=== PATIENT | female | born 1970 | race Caucasian/White ===

== ENCOUNTER 2024-02-22 23:19 | Inpatient (IN) | payer OTHER ==
[~2024-02-22] VITALS: Ht 170.2 cm; Wt 75.0 kg
[2024-02-22 23:23] VITALS: O2SAT 95
[2024-02-23] VITALS (9 sets, daily range): BP systolic 140–173; BP diastolic 80–106; PULSE 75–111; RESP 18–20; TEMP 97–97.9
[2024-02-23 00:32] LABS: BASOPHILS % 0.6 % (0.0-2.0); EOSINOPHILS % 3.5 % (0.0-5.0); HEMATOCRIT. 33.5 % (36.0-48.0); LYMPHOCYTES % 22.6 % (20.0-50.0); MEAN CORPUSCULAR HEMOGLOBIN 29.3 pg (28.0-32.0); MEAN CORPUSCULAR HGB CONC 32.9 g/dL (31.0-37.0); MONOCYTES % 8.8 % (2.0-8.0); NEUTROPHILS % 64.5 % (40.0-76.0); PLATELET 266 x1000/uL (130-400); RED BLOOD CELL COUNT 3.77 mill/uL (4.2-5.4); RED CELL DISTRIBUTION WIDTH 14.7 % (11.6-14.6); WHITE BLOOD COUNT 7.7 x1000/uL (4.5-11.0)
[2024-02-23 00:40] LABS: CHLORIDE 108 mEq/L (98-107); SODIUM 139 mEq/L (136-145)
[2024-02-23 00:41] LABS: CARBON DIOXIDE 24 mEq/L (21-32)
[2024-02-23 00:46] LABS: GLUCOSE 128 mg/dL (70-105); UREA NITROGEN BLOOD 54 mg/dL (9-23)
[2024-02-23 00:47] LABS: TROPONIN I HIGH SENSITIVITY 17 ng/L (3.0-34)
[2024-02-23 00:48] LABS: ALANINE AMINOTRANSFERASE 11 IU/L (10-49); ALBUMIN 3.7 g/dL (3.2-4.8); ASPARTATE AMINOTRANSFERASE 12 IU/L (<34); BILIRUBIN TOTAL 0.2 mg/dL (0.1-1.0); PROTEIN TOTAL 6.7 g/dL (6.0-8.3)
[2024-02-23 00:49] LABS: BILIRUBIN DIRECT < 0.1 mg/dL (<=3.0)
[2024-02-23 00:51] LABS: POTASSIUM 5.8 mEq/L (3.5-5.1)
[2024-02-23 00:58] LABS: CREATININE 5.4 mg/dL (0.6-1.0)
[2024-02-23] MEDS: INSULIN REGULAR (HUMULIN R) 300UNITS/3ML VIAL IV NR (01:00)
[2024-02-23] MEDS ORDERED: CALCIUM GLUCONATE 1,000 MG in DEXT 5% WATER 100 ML IV ONE (01:00)
[2024-02-23] MEDS: SODIUM POLYSTYRENE SULFONATE 15 G/60 ML BOT PO NR (01:00)
[2024-02-23] MEDS ORDERED: ALBUTEROL (0.083%) 2.5MG/3ML NEB HHN SCH (01:00)
[2024-02-23 01:02] LABS: BG BASE EXCESS -3.1 mmol/L (-2.0-2.0); BG CARBOXYHEMOGLOBIN 0.5 % (0.5-1.5); BG OXYHEMOGLOBIN 92.5 % (94.0-97.0); BG PCO2 39.9 mmHg (35.0-45.0); BG PO2 64.8 mmHg (75.0-100.0); BG SAMPLE SITE RIGHT RADIAL; BG TOTAL HEMOGLOBIN 11.4 g/dL (12.0-18.0); BG VENT MODE ROOM AIR
[2024-02-23 01:59] LABS: HEPATITIS B SURFACE ANTIGEN NEGATIVE (Negative)
[2024-02-23] MEDS: DEXTROSE 50% WATER 50ML SYRINGE IV NR (02:04)
[2024-02-23] MEDS: FUROSEMIDE 40MG/4ML VIAL IV NR (02:05)
[2024-02-23] MEDS: SODIUM BICARBONATE 8.4% 1 MEQ/ML 50ML SYR IV NR (02:11)
[2024-02-23 02:20] LABS: HEPATITIS A AB IGM NEGATIVE (Negative); HEPATITIS B CORE AB IGM NEGATIVE (Negative)
[2024-02-23 02:21] LABS: HEPATITIS C AB NON REACTIVE (Neg) (Negative)
[2024-02-23] MEDS: CALCIUM GLUCONATE 1GM PREMIX 50 ML IV NR (03:25)
[2024-02-23] MEDS: CALCIUM ACETATE 667MG CAPSULE PO SCH (12:32)
[2024-02-23] MEDS: FOLIC ACID/VITAMIN B COMP W-C TABLET PO SCH (12:33)
[2024-02-23] MEDS ORDERED: DOCUSATE SODIUM 100MG CAPSULE PO PRN (12:45)
[2024-02-23] MEDS ORDERED: IPRATROPIUM/ALBUTEROL 0.5-3(2.5)MG/3ML NEB HHN PRN (12:45)
[2024-02-23] MEDS ORDERED: ACETAMINOPHEN 325MG TABLET PO PRN (12:45)
[2024-02-23] MEDS ORDERED: ONDANSETRON HCL 4MG/2ML INJ IV PRN (12:45)
[2024-02-23] MEDS ORDERED: AMLO10TA80 PO (16:29)
[2024-02-23] MEDS ORDERED: NIFE90TA60 PO (16:29)
[2024-02-23] MEDS ORDERED: ATOR40TA70 PO (16:29)
[2024-02-23] MEDS ORDERED: SEVE800T8 PO (16:29)
[2024-02-23] MEDS ORDERED: APIX5TAB PO (16:29)
[2024-02-23] MEDS ORDERED: LABE200T9 PO (16:29)
[2024-02-23] MEDS ORDERED: BUME1TAB8 PO (16:29)
[2024-02-23] MEDS ORDERED: CARV25TA47 PO (16:29)
[2024-02-23] MEDS ORDERED: HALO2TAB2 PO (16:29)
[2024-02-23] MEDS ORDERED: DIVA-75 PO (16:29)
[2024-02-23] MEDS: HEPARIN 5000 UNITS/ML VIAL SUBCUT SCH (17:38)
[2024-02-23] MEDS: ACETAMINOPHEN 325MG TABLET PO PRN (17:46)
[2024-02-23] MEDS: CLONIDINE 0.1MG TABLET PO PRN (17:46)
[2024-02-24] VITALS (7 sets, daily range): BP systolic 125–186; BP diastolic 68–102; PULSE 73–103; RESP 18–20; TEMP 97.2–98.6
[2024-02-24 06:07] LABS: BASOPHILS % 0.8 % (0.0-2.0); EOSINOPHILS % 4.2 % (0.0-5.0); HEMOGLOBIN. 11.4 g/dL (12.0-16.0); LYMPHOCYTES % 26.3 % (20.0-50.0); MEAN CORPUSCULAR HEMOGLOBIN 28.9 pg (28.0-32.0); MEAN CORPUSCULAR HGB CONC 33.5 g/dL (31.0-37.0); MEAN CORPUSCULAR VOLUME 86.1 fL (81.0-99.0); MEAN PLATELET VOLUME 8.3 fl (7.4-10.4); MONOCYTES % 8.6 % (2.0-8.0); NEUTROPHILS % 60.1 % (40.0-76.0); PLATELET 258 x1000/uL (130-400); RED BLOOD CELL COUNT 3.95 mill/uL (4.2-5.4); RED CELL DISTRIBUTION WIDTH 14.7 % (11.6-14.6); WHITE BLOOD COUNT 6.2 x1000/uL (4.5-11.0)
[2024-02-24 06:13] LABS: CALCIUM 8.4 mg/dL (8.7-10.4); POTASSIUM 4.7 mEq/L (3.5-5.1)
[2024-02-24] MEDS ORDERED: IOHEXOL-350 100 ML BOTTLE IV NR (21:30)
[2024-02-25] VITALS: PULSE 102
[2024-02-25 04:00] VITALS: PULSE 101
[2024-02-25 08:00] VITALS: BP 161/95; PULSE 100; RESP 18; TEMP 98.8
[2024-02-25 12:00] VITALS: BP 170/100; PULSE 101; RESP 20; TEMP 98
[2024-02-25 16:00] VITALS: PULSE 100; RESP 18; TEMP 97
[2024-02-25 20:00] VITALS: BP 154/90; PULSE 100; RESP 17; TEMP 98.1
[2024-02-26] VITALS (7 sets, daily range): BP systolic 130–197; BP diastolic 84–119; PULSE 72–105; RESP 18–20; TEMP 97.5–98.1
[2024-02-26 06:24] LABS: BASOPHILS % 0.8 % (0.0-2.0); EOSINOPHILS % 4.9 % (0.0-5.0); HEMATOCRIT. 33.6 % (36.0-48.0); HEMOGLOBIN. 11.3 g/dL (12.0-16.0); MEAN CORPUSCULAR HEMOGLOBIN 28.7 pg (28.0-32.0); MEAN CORPUSCULAR HGB CONC 33.5 g/dL (31.0-37.0); MEAN CORPUSCULAR VOLUME 85.7 fL (81.0-99.0); MEAN PLATELET VOLUME 8.6 fl (7.4-10.4); MONOCYTES % 8.8 % (2.0-8.0); NEUTROPHILS % 58.5 % (40.0-76.0); PLATELET 261 x1000/uL (130-400); RED BLOOD CELL COUNT 3.92 mill/uL (4.2-5.4); RED CELL DISTRIBUTION WIDTH 14.5 % (11.6-14.6); WHITE BLOOD COUNT 6.2 x1000/uL (4.5-11.0)
[2024-02-26 06:32] LABS: CHLORIDE 103 mEq/L (98-107); POTASSIUM 5.4 mEq/L (3.5-5.1); SODIUM 134 mEq/L (136-145)
[2024-02-26 06:34] LABS: CALCIUM 8.4 mg/dL (8.7-10.4); CARBON DIOXIDE 25 mEq/L (21-32); INR 0.9; PROTHROMBIN TIME 10.2 sec (9.6-11.0)
[2024-02-26 06:40] LABS: ALANINE AMINOTRANSFERASE 13 IU/L (10-49); GLUCOSE 193 mg/dL (70-105); UREA NITROGEN BLOOD 47 mg/dL (9-23)
[2024-02-26 06:41] LABS: ALBUMIN 3.7 g/dL (3.2-4.8); ASPARTATE AMINOTRANSFERASE 12 IU/L (<34)
[2024-02-26 06:42] LABS: BILIRUBIN TOTAL 0.2 mg/dL (0.1-1.0); PROTEIN TOTAL 6.8 g/dL (6.0-8.3)
[2024-02-26 06:48] LABS: BILIRUBIN DIRECT < 0.1 mg/dL (<=3.0)
[2024-02-26] MEDS: SODIUM POLYSTYRENE SULFONATE 15 G/60 ML BOT PO NR (09:45)
[2024-02-26] MEDS ORDERED: ALBUTEROL (0.083%) 2.5MG/3ML NEB HHN NR (09:45)
[2024-02-26] MEDS ORDERED: PHENYLEPHRINE/SHK LV/MO/PET RECTAL OINTMENT 28GM PR PRN (12:00)
[2024-02-26] MEDS ORDERED: LORAZEPAM 1MG TABLET PO PRN (20:15)
[2024-02-26] MEDS: RISPERIDONE 1MG TABLET PO SCH (21:11)
[2024-02-27 04:00] VITALS: BP 159/95; PULSE 96; RESP 18; TEMP 98
[2024-02-27 07:42] LABS: CALCIUM 8.1 mg/dL (8.7-10.4); POTASSIUM 5.2 mEq/L (3.5-5.1)
[2024-02-27 07:54] LABS: CREATININE 5.3 mg/dL (0.6-1.0)
[2024-02-27 08:00] VITALS: BP 157/94; PULSE 104; RESP 18; TEMP 96.3
[2024-02-27 08:09] LABS: BASOPHILS % 0.6 % (0.0-2.0); EOSINOPHILS % 4.1 % (0.0-5.0); LYMPHOCYTES % 23.6 % (20.0-50.0); MEAN CORPUSCULAR HEMOGLOBIN 28.6 pg (28.0-32.0); MEAN CORPUSCULAR HGB CONC 33.5 g/dL (31.0-37.0); MEAN CORPUSCULAR VOLUME 85.4 fL (81.0-99.0); MEAN PLATELET VOLUME 8.5 fl (7.4-10.4); MONOCYTES % 9.6 % (2.0-8.0); NEUTROPHILS % 62.1 % (40.0-76.0); PLATELET 231 x1000/uL (130-400); RED CELL DISTRIBUTION WIDTH 14.8 % (11.6-14.6); WHITE BLOOD COUNT 6.2 x1000/uL (4.5-11.0)
[2024-02-27 08:46] LABS: HEMATOCRIT. 28.2 % (36.0-48.0); HEMOGLOBIN. 9.5 g/dL (12.0-16.0)
[2024-02-27] MEDS ORDERED: DICLOFENAC SODIUM 1% GEL 50GM TOP SCH (11:00)
== END 2024-02-27 12:53 | disposition left against medical advice (07) | DRG 425 ==
LOC: ER 23:19 → EDBEDREQ 02-23 00:10 → 8WST 02-23 02:42 → EDBEDREQ 02-23 02:48 → 8WST 02-26 01:28
PROVIDERS: ADMIT Internal Medicine; ATTEND Internal Medicine
PROC: 5A1D70Z Performance of Urinary Filtration, Intermittent, Less than 6 Hours Per Day (ICD-10-PCS; principal; 2024-02-23)
PROC: 5A1D70Z Performance of Urinary Filtration, Intermittent, Less than 6 Hours Per Day (ICD-10-PCS; 2024-02-26)
DX: E87.5 Hyperkalemia (principal); J96.00 Acute respiratory failure, unspecified whether with hypoxia or hypercapnia; I13.2 Hypertensive heart and chronic kidney disease with heart failure and with stage 5 chronic kidney disease, or end stage renal disease; E87.20 Acidosis, unspecified; F20.0 Paranoid schizophrenia; E11.22 Type 2 diabetes mellitus with diabetic chronic kidney disease; D64.9 Anemia, unspecified; N18.6 End stage renal disease; Z99.2 Dependence on renal dialysis; I50.32 Chronic diastolic (congestive) heart failure; J84.9 Interstitial pulmonary disease, unspecified; K64.4 Residual hemorrhoidal skin tags; J98.11 Atelectasis; D72.821 Monocytosis (symptomatic); R00.0 Tachycardia, unspecified; K92.1 Melena; Z53.29 Procedure and treatment not carried out because of patient's decision for other reasons; Z79.84 Long term (current) use of oral hypoglycemic drugs; Z59.00 Homelessness unspecified
CPT/HCPCS: 36415; 36600; 71045; 71275; 80048; 80076; 82375; 82805; 82962; 83880; 84484; 85025; 85044; 85379; 86705; 86706; 86709; 87340; 90935; 93005; 93306; 93970; 99291; J0610; J1644; J1815; J1940; J3490; Q9967

== ENCOUNTER 2024-04-01 23:13 | Inpatient (IN) | payer OTHER ==
[~2024-04-01] VITALS: Ht 170.2 cm; Wt 62.8 kg
[~2024-04-01 23:13] MED LIST: AMLO10TA80 PO; APIX5TAB PO; ATOR40TA70 PO; BUME1TAB8 PO; CARV25TA47 PO; DIVA-75 PO; HALO2TAB2 PO; LABE200T9 PO; NIFE90TA60 PO; SEVE800T8 PO
[2024-04-01 23:23] VITALS: O2SAT 97
[2024-04-01 23:57] LABS: BASOPHILS % 1.1 % (0.0-2.0); EOSINOPHILS % 2.4 % (0.0-5.0); HEMATOCRIT. 27.3 % (36.0-48.0); LYMPHOCYTES % 17.2 % (20.0-50.0); MEAN CORPUSCULAR HEMOGLOBIN 29.7 pg (28.0-32.0); MEAN CORPUSCULAR HGB CONC 33.1 g/dL (31.0-37.0); MEAN CORPUSCULAR VOLUME 89.6 fL (81.0-99.0); MEAN PLATELET VOLUME 7.5 fl (7.4-10.4); NEUTROPHILS % 70.3 % (40.0-76.0); PLATELET 262 x1000/uL (130-400); RED BLOOD CELL COUNT 3.04 mill/uL (4.2-5.4); RED CELL DISTRIBUTION WIDTH 16.7 % (11.6-14.6); WHITE BLOOD COUNT 5.5 x1000/uL (4.5-11.0)
[2024-04-02 00:04] LABS: POTASSIUM 4.7 mEq/L (3.5-5.1)
[2024-04-02 00:05] LABS: CALCIUM 8.5 mg/dL (8.7-10.4)
[2024-04-02 00:10] LABS: CREATININE 4.6 mg/dL (0.6-1.0)
[2024-04-02] MEDS: CLONIDINE 0.1MG TABLET PO NR (03:06)
[2024-04-02] MEDS: CLONIDINE 0.2MG TABLET PO ONE (03:16)
[2024-04-02 08:55] VITALS: BP 155/77; PULSE 91; RESP 20; TEMP 98.1
[2024-04-02] MEDS ORDERED: DEXTROSE 50% WATER 50ML SYRINGE IV PRN (10:00)
[2024-04-02] MEDS ORDERED: ACETAMINOPHEN 325MG TABLET PO PRN ×2 (10:00)
[2024-04-02] MEDS ORDERED: ONDANSETRON HCL 4MG/2ML INJ IV PRN (10:00)
[2024-04-02] MEDS ORDERED: IPRATROPIUM/ALBUTEROL 0.5-3(2.5)MG/3ML NEB HHN PRN (10:00)
[2024-04-02] MEDS ORDERED: DOCUSATE SODIUM 100MG CAPSULE PO PRN (10:00)
[2024-04-02] MEDS ORDERED: CLONIDINE 0.1MG TABLET PO PRN (10:00)
[2024-04-02 12:00] VITALS: BP 114/75; PULSE 94; RESP 20; TEMP 98
[2024-04-02] MEDS: INSULIN LISPRO 100 UNITS/ML SUBCUT SCH (12:05)
[2024-04-02] MEDS: BLOOD SUGAR DIAGNOSTIC STRIP TEST SCH (12:05)
[2024-04-02 13:48] LABS: HEPATITIS A AB IGM NEGATIVE (Negative)
[2024-04-02 13:49] LABS: HEPATITIS B CORE AB IGM NEGATIVE (Negative); HEPATITIS C AB NON REACTIVE (Neg) (Negative)
[2024-04-02 14:36] LABS: HEPATITIS B SURFACE ANTIGEN NEGATIVE (Negative)
[2024-04-02 17:31] VITALS: BP 114/75; PULSE 94; RESP 20; TEMP 98
[2024-04-02] MEDS: EPOETIN ALFA-EPBX 4,000 UNIT/ML VIAL SUBCUT SCH (21:00)
[2024-04-04] VITALS (10 sets, daily range): BP systolic 181–222; BP diastolic 104–127; PULSE 79–102; RESP 17–47; TEMP 97.4–97.8
== END 2024-04-04 17:06 | disposition left against medical advice (07) | DRG 194 ==
LOC: ER 23:13 → 5WST 04-02 01:38 → 6WST 04-02 08:52
PROVIDERS: ADMIT Internal Medicine; ATTEND Internal Medicine
PROC: 5A1D70Z Performance of Urinary Filtration, Intermittent, Less than 6 Hours Per Day (ICD-10-PCS; principal; 2024-04-04)
DX: I13.2 Hypertensive heart and chronic kidney disease with heart failure and with stage 5 chronic kidney disease, or end stage renal disease (principal); J96.00 Acute respiratory failure, unspecified whether with hypoxia or hypercapnia; N18.6 End stage renal disease; E11.22 Type 2 diabetes mellitus with diabetic chronic kidney disease; D72.821 Monocytosis (symptomatic); D64.9 Anemia, unspecified; I50.33 Acute on chronic diastolic (congestive) heart failure; Z53.29 Procedure and treatment not carried out because of patient's decision for other reasons; I16.0 Hypertensive urgency; Z99.2 Dependence on renal dialysis; Z59.00 Homelessness unspecified; Z79.84 Long term (current) use of oral hypoglycemic drugs; Z79.899 Other long term (current) drug therapy; Z91.158 Patient's noncompliance with renal dialysis for other reason
CPT/HCPCS: 36415; 71045; 80048; 83036; 85025; 86705; 86709; 87340; 90935; 99285; J0885